=== PATIENT | female | born 1985 | race Caucasian/White ===

== ENCOUNTER 2019-04-17 05:30 | Emergency (ER) | payer BC ==
[~2019-04-17] VITALS: Ht 167.6 cm; Wt 72.6 kg
[2019-04-17] MEDS ORDERED: DUI500 PO (10:03)
[2019-04-17] MEDS ORDERED: KETO10TA2 PO (10:03)
== END 2019-04-17 10:13 | disposition home or self-care (01) ==
LOC: ER 05:30
DX: N39.0 Urinary tract infection, site not specified (principal); R10.32 Left lower quadrant pain

== ENCOUNTER 2019-05-13 08:06 | Emergency (ER) | payer BC ==
[~2019-05-13] VITALS: Ht 167.6 cm; Wt 72.6 kg
[~2019-05-13 08:06] MED LIST: DUI500 PO; KETO10TA2 PO
== END 2019-05-13 09:34 | disposition home or self-care (01) ==
LOC: ER 08:06
DX: L03.031 Cellulitis of right toe (principal); G89.11 Acute pain due to trauma